=== PATIENT | male | born 1960 | race Caucasian/White ===

== ENCOUNTER → 2017-05-02 | Outpatient (CLI) | payer BC ==
[~2017-05-02] MED LIST: ANALGESIC325 MG PO; ZOLOFT100 MG PO
== END | disposition home or self-care (01) ==
LOC: NUC 04-30 11:00
DX: N13.30 Unspecified hydronephrosis (principal); R94.4 Abnormal results of kidney function studies
CPT/HCPCS: 78709; A9562